=== PATIENT | female | born 1975 | race Caucasian/White ===

== ENCOUNTER 2020-02-16 20:54 | Emergency (ER) | payer MEDICAID ==
[~2020-02-16] VITALS: Ht 160 cm; Wt 69.4 kg
[2020-02-16 21:37] VITALS: BP 137/81
--- NOTE | 2020-02-16 21:57 | NUR ---
PT AMBULATED TO BED #11
--- NOTE | 2020-02-16 22:03 | NUR ---
44F c/o SCRAPE ON LITTLE TOE ON RIGHT FOOT THAT NOW HAS PUS AND PAIN X2W. PT STATES THAT THEY SCRAPED THE RIGHT LITTLE TOE WHEN WALKING BY A WHEELCHAIR. STATES THAT IT WAS JUST A SCRATCH X 2 WEEKS BUT 1 WEEK AGO, IT STARTED BECOMING SWOLLEN AND PAINFUL. CMS INTACT. NO LOC. NO N/V/D. PT SITTING ON CHAIR AT BED 11. NO MED HX AND NO MEDICATIONS
--- NOTE | 2020-02-16 22:36 | NUR ---
PATIENT LEFT WITHOUT BEING SEEN BY DR. ALLEN . NO FURTHER CARE PROVIDED FOR PATIENT.
== END 2020-02-16 22:38 | disposition left against medical advice (07) ==
LOC: MED 20:54
DX: M79.676 Pain in unspecified toe(s) (principal); Z53.21 Procedure and treatment not carried out due to patient leaving prior to being seen by health care provider